=== PATIENT | female | born 1995 | race Caucasian/White ===

== ENCOUNTER 2024-11-09 03:03 | Emergency (ER) | payer SELFPAY ==
[~2024-11-09] VITALS: Ht 157.5 cm; Wt 47.2 kg
[2024-11-09 03:08] VITALS: PULSE 106; RESP 20; TEMP 97.8; O2SAT 100
[2024-11-09] MEDS ORDERED: BACTRIM DS TAB1 EACH PO (04:00)
[2024-11-09 04:35] VITALS: BP 101/62; PULSE 94; RESP 18; TEMP 97.8
== END 2024-11-09 04:28 | disposition home or self-care (01) ==
LOC: FSED 03:39
DX: L02.31 Cutaneous abscess of buttock (principal); G40.909 Epilepsy, unspecified, not intractable, without status epilepticus; B19.20 Unspecified viral hepatitis C without hepatic coma; F41.9 Anxiety disorder, unspecified; F32.A Depression, unspecified
CPT/HCPCS: 99284